=== PATIENT | male | born 2000 | race Caucasian/White ===

== ENCOUNTER → 2019-11-29 10:29 | Outpatient (CLI) | payer BC, SELFPAY ==
[2019-11-29 13:48] LABS: Internal QC Validated? YES +Cl - CLEAR BKGD; Pregnancy, Urine Negative Negative
== END ==
PROVIDERS: PCP Family Medicine; Referring Provider Physician Assistant Medical; Visit Provider Physician Assistant Medical
DX: L70.0 Acne vulgaris (principal); L30.9 Dermatitis, unspecified; Z79.899 Other long term (current) drug therapy
CPT/HCPCS: 81025

== ENCOUNTER → 2020-01-03 08:14 | Outpatient (CLI) | payer BC, SELFPAY ==
[2020-01-03 10:04] LABS: Internal QC Validated? YES +Cl - CLEAR BKGD; Pregnancy, Urine Negative Negative
== END ==
PROVIDERS: PCP Family Medicine; Referring Provider Physician Assistant Medical; Visit Provider Physician Assistant Medical
DX: L70.0 Acne vulgaris (principal); Z79.899 Other long term (current) drug therapy
CPT/HCPCS: 81025

== ENCOUNTER → 2020-02-29 08:42 | Outpatient (CLI) | payer BC, SELFPAY ==
[2020-02-29 09:55] LABS: Internal QC Validated? YES +Cl - CLEAR BKGD; Pregnancy, Urine Negative Negative
== END ==
PROVIDERS: PCP Family Medicine; Referring Provider Physician Assistant Medical; Visit Provider Physician Assistant Medical
DX: L70.0 Acne vulgaris (principal); L71.0 Perioral dermatitis; Z79.899 Other long term (current) drug therapy
CPT/HCPCS: 81025